=== PATIENT | female | born 1965 | race Caucasian/White ===

== ENCOUNTER 2019-02-23 21:51 | Emergency (ER) | payer SELFPAY ==
--- NOTE | 2019-02-23 23:12 | RAD ---
XR Knee Rt 4 View STANDARD: 02/23/2019 10:48 PM CLINICAL INDICATION: Pain, fall COMPARISON: None. FINDINGS: Fracture:No fracture. Arthropathy:Moderate Incidental findings:None of significance. Mild joint capsular distention. IMPRESSION: 1. No acute osseous abnormality.
--- NOTE | 2019-02-23 23:15 | RAD ---
XR Pelvis AP STANDARD: 02/23/2019 10:48 PM CLINICAL INDICATION: Pain COMPARISON: None. FINDINGS: Fracture:No fracture. Arthropathy:Mild arthropathy. Incidental findings:Pelvic phleboliths IMPRESSION: 1. No acute osseous abnormality.
[2019-02-23] MEDS ORDERED: Ibuprofen 600 MG TAB ONE (23:31)
== END 2019-02-23 23:32 ==
LOC: MADERS 21:51
DX: S83.91XA Sprain of unspecified site of right knee, initial encounter (principal); M25.551 Pain in right hip; F41.9 Anxiety disorder, unspecified; F31.9 Bipolar disorder, unspecified; Y04.0XXA Assault by unarmed brawl or fight, initial encounter
CPT/HCPCS: 72170